=== PATIENT | female | born 1930 | race Caucasian/White ===

== ENCOUNTER 2017-06-17 01:28 | Emergency (ER) | payer MEDICARE ==
[~2017-06-17] VITALS: Ht 160 cm; Wt 77.3 kg
[2017-06-17 01:36] VITALS: BP 157/50; PULSE 62; RESP 20; O2SAT 94
[2017-06-17] MEDS ORDERED: MELO7.5O PO (01:44)
[2017-06-17] MEDS ORDERED: DILT240C51 PO (01:44)
[2017-06-17] MEDS ORDERED: LISI-567 PO (01:44)
[2017-06-17] MEDS ORDERED: HYDR25TA4 PO (01:44)
--- NOTE | 2017-06-17 01:44 | ED.REPORT ---
HPI-Abd Pain F 40 and Over Date of Service Jun 17, 2017 ED Provider: Charlie Melchor MD Pt is an 87 year old female with a history of HTN and A-fib who presents to the ED complaining of abdominal pain onset 4 days ago. She c/o associated nausea and vomiting (resolved), decreased appetite, and decreased urination. She denies fever, constipation, diarrhea, dysuria, and urinary frequency. The pt denies a history of abdominal surgeries including appendectomy and cholecystectomy. She denies a history of diverticulitis. Nursing Notes Stated Complaint: ABDOMINAL PAIN Chief Complaint: Female Abdominal Pain Nursing Notes Reviewed: Yes Allergies: Coded Allergies: No Known Allergies (Unverified , 06/17/17) Scheduled Diltiazem ER (Cartia XT) 240 Mg Cap.er.24h 240 MG PO DAILY Hydrochlorothiazide (Hydrochlorothiazide) 25 Mg Tablet 25 MG PO DAILY Lisinopril (Lisinopril) 20 Mg Tablet 20 MG PO DAILY Meloxicam (Meloxicam) 7.5 Mg/5 Ml Oral.susp 15 MG PO DAILY Omeprazole (Omeprazole) 20 Mg Capsule.dr 20 MG PO BID General Time Seen by MD: 01:42 Chief Complaint Abdominal pain Hx Obtained From: Patient Arrived By: Walk-in Sudden in Onset?: No Onset Occurred: 4 days ago Symptom Duration: Since onset Location: : Abdomen upper Quality: Painful Radiation: : Does not radiate Severity: Current: Moderate Severity: Maximum: Moderate Recent Healthcare: No recent doctor visit, No recent hospitalization Similar Sx Previous: No Past Medical History Past Medical History Reports: Hypertension Reports: Atrial fibrillation Social History Alcohol Use: "Social" Other Social History: Good social support Ambulatory Status Independent Review of Systems + decreased appetite Constitutional: Denies: Fever GI: Reports: Abdominal pain, Nausea, Vomiting (resolved), Denies: Constipation, Diarrhea Female: Reports: Urination decreased, Denies: Dysuria, Urinary frequency Complete sys rev & neg: except as marked. Physical Exam Vital Signs Vital Signs (First) Date Time Temp Pulse Resp B/P Pulse Ox O2 Delivery O2 Flow Rate FiO2 06/17/17 01:36 36.6 62 20 157/50 94 Room Air Initial VS: Reviewed, Vital signs normal Head / Eyes: Atraumatic, Normocephalic Neck: Supple, Full range of motion Extremities: Vascular intact, Neuro intact Skin: Warm, Dry, No cyanosis Neurologic: Alert, Oriented, Nonfocal Psychiatric: Mood/affect normal, Behavior normal General/Constitutional: Awake, Alert Respiratory / Chest: Atraumatic, Breath sounds NL, Breath sounds = bilat Cardiovascular: Heart rate NL, Regular rhythm, Heart sounds NL Abdomen: Atraumatic, Soft Diffuse upper abdominal tenderness. Non-tender in the lower abdomen. Back: Atraumatic, Full range of motion ENT: Atraumatic, Airway patent Dry appearing - lips Interpretation & Diagnostics Lab Results Interpretation Result Diagram: 06/17/17 0202 06/17/17 0202 Test 06/17/17 02:00 06/17/17 02:02 White Blood Count 8.8th/mm3 (3.8-10.1) Red Blood Count 4.09mil/mm3 (3.90-5.20) Hemoglobin 12.0g/dL (12.0-15.6) Hematocrit 34.7% (35.0-46.0) Mean Corpuscular Volume 84.8fL (81-100) Mean Corpuscular Hemoglobin 29.3pg (27.0-35.0) Mean Corpuscular Hemoglobin Concent 34.6% (32.0-37.0) Red Cell Distribution Width 13.3% (12.3-15.4) Platelet Count 328bil/L (150-400) Neutrophils (%) (Auto) 70.0% (40-74) Lymphocytes (%) (Auto) 15.2% (14-46) Monocytes (%) (Auto) 10.5% (4-12) Eosinophils (%) (Auto) 3.4% (0-5) Basophils (%) (Auto) 0.7% (0-3) Prothrombin Time 10.1sec (8.1-12.5) Prothromb Time International Ratio 0.95ratio Sodium Level 128mEq/L (134-144) Potassium Level 4.0mEq/L (3.5-5.2) Chloride Level 89mEq/L (97-108) Carbon Dioxide Level 23mmol/L (18-29) Blood Urea Nitrogen 25mg/dL (8-27) Creatinine 0.83mg/dL (0.57-1.00) Estimat Glomerular Filtration Rate 93mL/min (>59) Glucose Level 139mg/dL (60-99) Lactic Acid Level 1.4mmol/L (0.4-2.0) Calcium Level 9.9mg/dL (8.5-10.1) Magnesium Level 1.8mg/dL (1.6-2.6) Total Bilirubin 0.2mg/dL (0.0-1.2) Aspartate Amino Transf (AST/SGOT) 15U/L (0-50) Alanine Aminotransferase (ALT/SGPT) 11U/L (0-32) Alkaline Phosphatase 55U/L (25-165) Total Protein 7.0g/dL (6.4-8.4) Albumin 3.8g/dL (3.4-5.0) Lipase 27U/L (13-60) Lab Results Interpretation: Mild hyponatremia, mildly elevated nonfasting glucose CT Abd / Pelvis Interpretation CONCLUSION: 1. Wall thickening and inflammation of the descending duodenum. Differential included duidenitis and peptic ulcer disease. 2. Normal appendix. No free air, abscess, or bowel obstruction. Chronic diverticulosis. Small hiatal hernia. 3. 3.4x3.2x1.8 cm low attenuation lesion in the fat just below the transverse duodenal segment has a benign appearance and may represent cyst. Transmitted to the ED at 03:32 by Dayne Greenwood M.D. Study type: Abdominal CT no contrast Interpretation / Wet Read by: Interpret - Radiologist Re-Eval/Medical Decision Med Decision/Clinical Course 87-year-old female with upper abdominal pain found to have an area of a gastritis and duodenitis, likely related to acid overproduction. She will be discharged home with medications to maximize acid reduction. H. pylori is pending. Source of Hx: Old records Re-Evaluation/Progress #1: Time of Eval: 02:49 Re-Evaluation/Progress Note: Pt rechecked. Informed pt of reassuring lab results and plan for CT. Pt understands and agrees with plan for CT. All questions addressed. Re-Evaluation/Progress #2: Time of Eval: 03:41 Re-Evaluation/Progress Note: Pt rechecked. Informed pt of CT scan results and plan to test for H. pylori. Informed pt of plan for discharge. Pt understands and agrees with plan for discharge. F/U instructions and RTER warnings given. All questions addressed. Counseled Regarding: Diagnosis, Lab results, Need for follow-up, When/why to return to ED Discharge & Departure Primary Impression: Duodenitis Disposition: Home Discharge Condition All VS Reviewed: Yes Condition: Stable Patient Instructions: Gastritis (ED) Additional Instructions: There is inflammation of the stomach and duodenum likely caused by acid overproduction. No evidence of diverticulitis. Omeprazole (Prilosec) 20 mg by mouth twice a day, #60 prescribed. An H. pylori test is pending. This is a bacteria that can sometimes cause this problem. Referrals: Bridger Dooley DO (PCP) [facility] Attestation Portions of this note were transcribed by Yvonne Bryan. I, Dr. Melchor personally performed the history, physical exam and medical decision-making; I reviewed and confirmed the accuracy of the information in the transcribed note. Signed by: Melissa Yen, 06/17/17. copies to: Bridger Dooley Howard L MD Jun 17, 2017 01:44 Yvonne Ordaz Jun 17, 2017 01:55
[2017-06-17] MEDS ORDERED: 0.9% Sodium Chloride 1,000 ML IV ONE ×2 (01:53→02:50)
[2017-06-17 02:10] LABS: BASOPHILS % (AUTO) 0.7 % (0-3); EOSINOPHILS % (AUTO) 3.4 % (0-5); MONOCYTES % (AUTO) 10.5 % (4-12); Mean Corpuscular Hemoglobin 29.3 pg (27.0-35.0); Mean Corpuscular Volume 84.8 fL (81-100); Platelet Count 328 bil/L (150-400)
[2017-06-17 02:26] LABS: INR 0.95 ratio
[2017-06-17 02:30] LABS: Magnesium 1.8 mg/dL (1.6-2.6)
[2017-06-17 02:39] VITALS: BP 137/46; PULSE 69; RESP 12; O2SAT 95
[2017-06-17] MEDS ORDERED: Pantoprazole 4 mg/mL 10 mL Inj IVPUSH ONE (03:45)
[2017-06-17] MEDS ORDERED: OMEP20CA11 PO (03:50)
[2017-06-17 04:22] VITALS: BP 134/52; PULSE 66; RESP 16; O2SAT 96
--- NOTE | 2017-06-17 09:30 | DRSVH ---
PROCEDURE: CT ABDOMEN AND PELVIS WITH CONTRAST ([id number]) INDICATIONS: 87 year-old woman with abdominal pain. TECHNIQUE: After the administration of intravenous contrast, 5 mm thick sections acquired from the diaphragm to the symphysis. 5 mm coronal and sagittal reformats were acquired. For radiation dose reduction, the following was used: automated exposure control, adjustment of mA and/or kV according to patient siz e. COMPARISON: None. FINDINGS: Image quality: Excellent. ABDOMEN: Lung bases: Lung bases are clear. Heart size is normal. There is a small hiatal hernia. Solid organs: Liver and spleen are normal in size and enhancement. A 9 mm nodule in the left upper quadrant anteriorly may be a small splenule. Gallbladder is normal. Biliary system is non dilated. Pancreas enhances normally. The left adrenal is mildly nodular. Kidneys demonstrate normal size and enhancement, without hydronephrosis. Peritoneum and bowel: The vertical segment of duodenum is thickened. There is also mild thickening o f gastric antrum/pylorus. There are scattered colonic diverticula. No evidence for acute diverticulit is. No free fluid or air. 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 Nodes and vessels: No retroperitoneal or mesenteric adenopathy by size criteria. Aorta and inferior vena cava are normal in size. Small calcified splenic artery aneurysm measures 1.1 cm. There is mod erate to severe atherosclerosis distal abdominal aorta and common iliac arteries. Miscellaneous: Small fat-containing umbilical hernia is noted. PELVIS: Genitourinary: Bladder wall thickness is normal. Uterus is normal. No pathological free fluid. Miscellaneous: No inguinal adenopathy. Small fat-containing right inguinal hernia is noted. Bones: No suspicious bony lesions. Intraosseous hemangiomas noted at T10 and L2. Degenerative palacio es are present in lumbar spine. No vertebral body compression fractures. IMPRESSION: 1. There is thickening of the vertical segment of duodenum, most likely secondary to duodenitis or pe ptic ulcer disease. Recommend GI consultation/follow. 2. Colonic diverticulosis. No acute diverticulitis. 3. 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 4. Nodularity of the left adrenal. 5. Small splenic artery aneurysm measuring 1.1 cm. 6. Small hiatal hernia. 7. Small fat-containing umbilical hernia. No significant discrepancy with the spinner hydraulic radiology preliminary report. Dictated by: Nu Swan M.D. on 06/17/2017 at 9:12 Approved by: Nu Swan M.D. on 06/17/2017 at 9:27
== END 2017-06-17 04:25 | disposition home or self-care (01) ==
LOC: SED 01:28
DX: K29.80 Duodenitis without bleeding (principal); I10 Essential (primary) hypertension; I48.91 Unspecified atrial fibrillation; R11.2 Nausea with vomiting, unspecified
CPT/HCPCS: 36415; 74177; 80053; 83605; 83690; 83735; 85025; 85610; 86677; 96361; 96374; 99285; J7030; Q9967; S0164